=== PATIENT | male | born 1965 | race Two or more races ===

== ENCOUNTER → 2017-09-20 | Outpatient (CLI) | payer OTHER | END | disposition home or self-care (01) | LOC: CFH 15:55 | PROVIDERS: ATTEND Internal Medicine | DX: K11.1 Hypertrophy of salivary gland (principal); R59.9 Enlarged lymph nodes, unspecified | CPT/HCPCS: 76536 ==

== ENCOUNTER → 2017-11-05 | Outpatient (CLI) | payer OTHER ==
[~2017-11-05] MED LIST: OMNIPAQUE 350 MG/ML, 100ML BOTTLE ONE
== END | disposition home or self-care (01) ==
LOC: CFH 10:12
PROVIDERS: ATTEND Physician Assistant
DX: M54.2 Cervicalgia (principal); E78.5 Hyperlipidemia, unspecified; D18.03 Hemangioma of intra-abdominal structures; Z79.899 Other long term (current) drug therapy
CPT/HCPCS: 70491; 93880; Q9967

== ENCOUNTER → 2017-11-29 | Outpatient (CLI) | payer OTHER | END | disposition home or self-care (01) | LOC: CFH 08:29 | PROVIDERS: ATTEND Physician Assistant | DX: D17.71 Benign lipomatous neoplasm of kidney (principal); N28.89 Other specified disorders of kidney and ureter | CPT/HCPCS: 76770 ==

== ENCOUNTER 2018-02-21 12:13 | Outpatient (CLI) | payer OTHER ==
[2018-02-21] MEDS ORDERED: OMNIPAQUE 350 MG/ML, 100ML BOTTLE ONE (15:55)
== END 2018-02-21 23:59 | disposition home or self-care (01) ==
LOC: CFH 12:13
PROVIDERS: ATTEND Physician Assistant
DX: D17.71 Benign lipomatous neoplasm of kidney (principal); K76.0 Fatty (change of) liver, not elsewhere classified; D18.03 Hemangioma of intra-abdominal structures
CPT/HCPCS: 74170; Q9967

== ENCOUNTER → 2018-02-26 | Outpatient (CLI) | payer OTHER ==
[~2018-02-26] MED LIST changes: +GADOBUTROL 10 MMOL/10 ML VIAL ONE; -OMNIPAQUE 350 MG/ML, 100ML BOTTLE ONE
== END | disposition home or self-care (01) ==
LOC: CFH 10:18
PROVIDERS: ATTEND Physician Assistant
DX: D18.03 Hemangioma of intra-abdominal structures (principal); E78.5 Hyperlipidemia, unspecified
CPT/HCPCS: 70543; A9585